=== PATIENT | female | born 1970 | race Caucasian/White ===

== ENCOUNTER 2021-08-18 06:24 | Emergency (ER) | payer OTHER ==
[~2021-08-18] VITALS: Ht 157.5 cm; Wt 54.4 kg
[~2021-08-18 06:24] MED LIST: ATIVAN2 MG PO; FLUTICASONE PRO16 GM NS; MORPHINE SULFAT30 M1 PO; OXYCODONE HCL15 MG PO; PROAIR HFA8.5 GM INH; ROBAXIN500 MG PO; WELLBUTRIN XL300 MG PO; ZITHROMAX500 MG PO
--- OUTSIDE RECORDS SUMMARY | 2021-08-18 06:26 | XMS ---
PreManage Notification: PHYLLIS QUEEN Security Data Designer Events No recent Security Events currently on file CRITERIA MET - [facility] CARE PROVIDERS There are no care providers on record at this time. Anthony has no Care Guidelines for this patient. [place] VISIT COUNT (12 MO.) 1 BUB[facility] Gambino TOTAL 1 NOTE: Visits indicate total known visits. ED/C VISIT TRACKING (12 MO.) 08/18/2021 06:25 [facility] Rendon [place] TYPE: Emergency COMPLAINT: - FALL INPATIENT VISIT TRACKING (12 MO.) No inpatient visits to display in this time frame [id number]
== END 2021-08-18 08:36 | disposition home or self-care (01) ==
LOC: ED 06:24
DX: S09.90XA Unspecified injury of head, initial encounter (principal); S13.9XXA Sprain of joints and ligaments of unspecified parts of neck, initial encounter; M79.7 Fibromyalgia; W01.0XXA Fall on same level from slipping, tripping and stumbling without subsequent striking against object, initial encounter; Z88.2 Allergy status to sulfonamides; Z88.1 Allergy status to other antibiotic agents; Z88.5 Allergy status to narcotic agent
CPT/HCPCS: 70450; 72125; 99284-25; A9270-GY

== ENCOUNTER 2022-09-02 11:37 | Emergency (ER) | payer OTHER ==
[~2022-09-02] VITALS: Ht 157.5 cm; Wt 49.9 kg
--- OUTSIDE RECORDS SUMMARY | 2022-09-02 11:41 | XMS ---
PreManage Notification: PHYLLIS QUEEN Security Developer Architect Events No recent Security Events currently on file [facility] There are no care providers on record at this time. Anthony has no Care Guidelines for this patient. [place] VISIT COUNT (12 MO.) 1 BUBBA Gambino TOTAL 1 NOTE: Visits indicate total known visits. ED/UCC VISIT TRACKING (12 MO.) 09/02/2022 11:38 [facility] Rend[facility] [place] TYPE: Emergency COMPLAINT: - R HIP/LEG PAIN INPATIENT VISIT TRACKING (12 MO.) No inpatient visits to display in this time frame [id number]
[2022-09-02] MEDS ORDERED: OXYCODONE HCL10 MG PO (17:23)
[2022-09-02] MEDS ORDERED: CYCLOBENZAPRINE10 MG PO (17:23)
[2022-09-02] MEDS ORDERED: METHYLPREDNISOLO4 M1 PO (17:23)
[2022-09-02] MEDS ORDERED: ONDANSETRON ODT8 MG PO (17:23)
== END 2022-09-02 17:30 | disposition home or self-care (01) ==
LOC: ED 11:37
DX: M54.41 Lumbago with sciatica, right side (principal); Z88.2 Allergy status to sulfonamides; Z88.1 Allergy status to other antibiotic agents; Z88.5 Allergy status to narcotic agent; Z79.899 Other long term (current) drug therapy; Z79.891 Long term (current) use of opiate analgesic
CPT/HCPCS: 72148; 96372; 99283-25; A9270; A9270-GY; J1885; J8540

== ENCOUNTER 2022-09-03 10:30 | Emergency (ER) | payer OTHER ==
[~2022-09-03] VITALS: Ht 157.5 cm; Wt 49.9 kg
[~2022-09-03 10:30] MED LIST changes: +CYCLOBENZAPRINE10 MG PO; +METHYLPREDNISOLO4 M1 PO; +ONDANSETRON ODT8 MG PO; +OXYCODONE HCL10 MG PO
--- OUTSIDE RECORDS SUMMARY | 2022-09-03 10:32 | XMS ---
PreManage Notification: PHYLLIS QUEEN Security Color Expert Events No recent Security Events currently on file CRITERIA MET - [facility] - [facility] - 2 Visits in 30 Days CARE PROVIDERS There are no care providers on record at this time. Anthony has no Care Guidelines for this patient. [place] [facility]: Visits indicate total known visits. ED/C VISIT TRACKING (12 MO.) [facility] 10[facility] COMPLAINT: - MULTIPLE COMPLAINTS 09/02/2022 11:38 [facility] Rend[facility] [place] TYPE: Emergency COMPLAINT: - R HIP/LEG PAIN INPATIENT VISIT TRACKING (12 MO.) No inpatient visits to display in this time frame [id number]
== END 2022-09-03 11:15 | disposition home or self-care (01) ==
LOC: ED 10:30
DX: M54.41 Lumbago with sciatica, right side (principal); Z88.2 Allergy status to sulfonamides; Z88.8 Allergy status to other drugs, medicaments and biological substances; Z88.5 Allergy status to narcotic agent; Z79.899 Other long term (current) drug therapy
CPT/HCPCS: J2270

== ENCOUNTER 2024-08-24 08:14 | Emergency (ER) | payer OTHER ==
[~2024-08-24] VITALS: Ht 157.5 cm; Wt 65.6 kg
[2024-08-24] MEDS ORDERED: IBUPROFEN 600 MG TAB PO ONE (08:30)
[2024-08-24] MEDS ORDERED: HYDROCODONE/ACETA 7.5/325 TAB PO ONE (08:30)
[2024-08-24] MEDS ORDERED: HYDROCODON-ACE1 EA11 PO (10:08)
[2024-08-24 10:23] VITALS: BP 120/82
== END 2024-08-24 10:17 | disposition home or self-care (01) ==
LOC: ED 08:14
DX: S62.616A Displaced fracture of proximal phalanx of right little finger, initial encounter for closed fracture (principal); S80.02XA Contusion of left knee, initial encounter; S80.01XA Contusion of right knee, initial encounter; W18.39XA Other fall on same level, initial encounter; Z79.899 Other long term (current) drug therapy; Z88.2 Allergy status to sulfonamides; Z88.5 Allergy status to narcotic agent; Z88.1 Allergy status to other antibiotic agents; Z88.8 Allergy status to other drugs, medicaments and biological substances
CPT/HCPCS: 73130; 73560; 99283; A9270